=== PATIENT | male | born 2000 | race American Indian/Alaskan Native ===

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

== ENCOUNTER 2022-04-25 14:59 | Emergency (ER) | payer SELFPAY ==
[2022-04-25 15:07] VITALS: BP 111/76
[2022-04-26] MEDS ORDERED: dexAMETHasone 20 MG/5 ML VIAL IM ONE (00:38)
[2022-04-26] MEDS ORDERED: KETOROLAC 30 MG/1 ML INJ IM ONE (00:38)
--- NOTE | 2022-04-26 00:43 | Emergency Department Report ---
ED Back Pain/Injury HPI - General Chief Complaint: Back Pain/Injury Stated Complaint: KIDNEY PAIN Time Seen by Provider: 04/26/22 00:37 Source: patient Limitations: No Limitations - History of Present Illness Initial Comments: Patient 22-year-old male with a history of asthma who presents for bilateral low back pain, rated as 5/10 achy soreness with movement.. Pain is exacerbated by movement bending and twisting. Pain is relieved by nothing tried. Patient denies dysuria frequency or urgency. There is been no nausea or vomiting. No loss or decrease in bowel or bladder function. Patient denies fall injury or trauma. Stating I just woke up this way yesterday, Complaint: back pain - Related Data Previous Rx's Medication Instructions Recorded Last Taken Type Ibuprofen [Motrin 600 MG tab] 600 mg PO Q8H PRN #30 tablet 05/01/18 Unknown Rx Cyclobenzaprine [Flexeril] 10 mg PO BID PRN #14 tab 04/26/22 Unknown Rx Menthol/Camphor [[place] 1 applicatio TP QID PRN #1 tube 04/26/22 Unknown Rx Ointment] Naproxen 500 mg PO BID PRN #30 tab 04/26/22 Unknown Rx Allergies Allergy/AdvReac Type Severity Reaction Status Date / Time No Known Allergies Allergy Verified 04/25/22 15:11 ED Review of Systems ROS: Stated complaint: KIDNEY PAIN Other details as noted in HPI Constitutional: denies: chills, fever Eyes: denies: eye pain, eye discharge, vision change ENT: denies: ear pain, throat pain Respiratory: other. denies: cough, shortness of breath, wheezing Cardiovascular: denies: chest pain, palpitations Endocrine: no symptoms reported Gastrointestinal: denies: abdominal pain, nausea, diarrhea Genitourinary: denies: urgency, dysuria Musculoskeletal: back pain. denies: joint swelling, arthralgia Skin: denies: rash, lesions Neurological: denies: headache, weakness, paresthesias, vertigo Psychiatric: denies: anxiety, depression Hematological/Lymphatic: denies: easy bleeding, easy bruising ED Past Medical Hx - Past Medical History Hx Asthma: Yes - Social History Smoking Status: Never Smoker Substance Use Type: None - Medications Home Medications: Home Medications Medication Instructions Recorded Confirmed Last Taken Type Ibuprofen [Motrin 600 MG tab] 600 mg PO Q8H PRN #30 tablet 05/01/18 Unknown Rx Cyclobenzaprine [Flexeril] 10 mg PO BID PRN #14 tab 04/26/22 Unknown Rx Menthol/Camphor [[place] 1 applicatio TP QID PRN #1 tube 04/26/22 Unknown Rx Ointment] Naproxen 500 mg PO BID PRN #30 tab 04/26/22 Unknown Rx ED Physical Exam - General Limitations: No Limitations General appearance: alert, in no apparent distress - Head Head exam: Present: normocephalic - Eye Eye exam: Present: normal appearance, PERRL, EOMI Pupils: Present: normal accommodation - ENT ENT exam: Present: mucous membranes moist - Neck Neck exam: Present: normal inspection, full ROM - Respiratory Respiratory exam: Present: normal lung sounds bilaterally. Absent: respiratory distress, wheezes, stridor - Cardiovascular Cardiovascular Exam: Present: regular rate, normal rhythm, normal heart sounds. Absent: systolic murmur, diastolic murmur, rubs, gallop - GI/Abdominal GI/Abdominal exam: Present: soft, normal bowel sounds. Absent: distended, tenderness - Rectal Rectal exam: Present: deferred - Extremities Exam Extremities exam: Present: normal inspection, full ROM - Back Exam Back exam: Present: normal inspection, CVA tenderness (R) - Neurological Exam Neurological exam: Present: alert, oriented X3, CN II-XII intact, normal gait, reflexes normal. Absent: motor sensory deficit - Psychiatric Psychiatric exam: Present: normal affect, normal mood - Skin Skin exam: Present: warm, dry, intact, normal color. Absent: rash ED Course Vital Signs 04/25/22 15:04 Temperature 98.9 F Pulse Rate 80 Respiratory 16 Rate Blood Pressure 111/76 O2 Sat by Pulse 98 Oximetry - Reevaluation(s) Reevaluation #1: Pain improved with medication given in ED. There is no dysuria urgency or frequency. There is no fevers or chills. No numbness or tingling. No loss or decrease in bowel or bladder function. Plan DC to home, moist heat therapy, return to emergency department should symptoms worsen. 04/26/22 00:47 ED Medical Decision Making - Medical Decision Making Is a low back strain plan DC to home with prescriptions. Moist heat therapy, return to emergency should symptoms worsen. Patient verbalizes agreement understanding of discharge plan patient DC'd home present in stable condition at this time. Critical care attestation.: If time is entered above; I have spent that time in minutes in the direct care of this critically ill patient, excluding procedure time. ED Disposition Clinical Impression: Low back strain Qualifiers: Encounter type: initial encounter Qualified Code(s): S39.012A - Strain of muscle, fascia and tendon of lower back, initial encounter Disposition: HOME / SELF CARE / HOMELESS Is pt being admited?: No Does the pt Need Aspirin: No Condition: Stable Instructions: Low Back Sprain or Strain Rehab-SportsMed Additional Instructions: Take medications as prescribed, use moist heat therapy as directed. Low back exercises as directed. Follow-up with your primary care doctor in 2 to 3 days. Return to emergency department should symptoms worsen. Prescriptions: Cyclobenzaprine [Flexeril] 10 mg PO BID PRN #14 tab PRN Reason: Muscle Spasm Naproxen 500 mg PO BID PRN #30 tab PRN Reason: Pain Menthol/Camphor [[place] Ointment] 1 applicatio TP QID PRN #1 tube PRN Reason: pain Referrals: SAM LEWIS MD [Staff Physician] - 3-5 Days Forms: Work/School Release Form(ED) Time of Disposition: 00:59
== END 2022-04-26 02:00 | disposition home or self-care (01) ==
LOC: ED 14:59
DX: S39.012A Strain of muscle, fascia and tendon of lower back, initial encounter (principal); J45.909 Unspecified asthma, uncomplicated; X58.XXXA Exposure to other specified factors, initial encounter; Y93.89 Activity, other specified; Y92.89 Other specified places as the place of occurrence of the external cause; Y99.8 Other external cause status
CPT/HCPCS: 96372; 99282; J1100; J1885